=== PATIENT | female | born 1970 | race Two or more races ===

== ENCOUNTER 2025-08-13 23:21 | Emergency (ER) | payer OTHER ==
[~2025-08-13] VITALS: Ht 160 cm; Wt 59.0 kg
[2025-08-14 01:39] LABS: BASO % 0.4 % (0.1-1.2); EOS # 0.11 (0.04-0.54); EOS % 1.0 % (0.7-7.0); LYMPH # 1.82 (1.18-3.74); LYMPH % 16.6 % (19.3-53.1); MEAN PLATELET VOLUME 9.10 fl (9.4-12.4); MONO # 0.51 (0.24-0.82); MONO % 4.7 % (4.7-12.5); NEUT # 8.43 (1.56-6.13); NEUT % 76.8 % (34.0-71.1); RED CELL DISTRIBUTION WIDTH 13.7 % (11.6-14.4)
[2025-08-14 01:39] LABS: URINE APPEARANCE Clear; URINE BILIRRUBIN Negative (NEGATIVE); URINE BLOOD Negative; URINE COLOR Yellow; URINE GLUCOSE Negative (NEGATIVE); URINE KETONE Negative (NEGATIVE); URINE LEUKOCYTE Trace; URINE NITRATE Negative; URINE PROTEIN Negative (NEGATIVE); URINE UROBILINOGEN 0.2 E.U./dl
[2025-08-14 01:43] LABS: URINE BACTERIA 49.1 uL (0.0-1933); URINE EPITHELIAL CELLS 4.8 uL (0.0-38.8); URINE RBC 4.8 uL (0.0-20.8); URINE WBC 26.0 uL (0.0-23.2)
[2025-08-14 01:50] LABS: INR 0.95
[2025-08-14 01:52] LABS: URINE CAST 0.84 uL (0.0-1.40)
[2025-08-14 01:55] LABS: ALT/SGPT 29.0 U/L (12-78); AST/SGOT 13.0 U/L (15-37); BILIRUBIN TOTAL 0.2 mg/dL (0.3-1.2); BUN CREA RATIO 20.0 (7.0-25.0); CREATININE SERUM 0.74 mg/dL (0.55-1.02); GFR 81.48; GLOBULINA 3.8 G/DL (2.4-3.5); GLUCOSE FASTING 114.0 mg/dL (65-100); OSMOLALITY SERUM 287.0 MOSM/KG (275-295)
[2025-08-14 02:03] LABS: COVID-19 AG NEGATIVE (NEGATIVE)
== END 2025-08-14 04:21 | disposition home or self-care (01) ==
LOC: ER 23:21
PROVIDERS: General Practice
DX: R55 Syncope and collapse (principal); Z20.822 Contact with and (suspected) exposure to COVID-19